=== PATIENT | female | born 1945 | race Caucasian/White ===

== ENCOUNTER 2021-06-12 16:28 | Emergency (ER) | payer MEDICARE, OTHER ==
[~2021-06-12] VITALS: Ht 157.5 cm; Wt 99.8 kg
--- NOTE | 2021-06-12 16:54 | NUR ---
To ER bed 6, [id number], c/o left wrist and r ankle pain s/p tripped and fall, no loc, 12/18. Patient said that she was getting out of her sliding door when she tripped and twisted her ankle, and back of head, [id number], breathing even and nonlabored
--- NOTE | 2021-06-12 17:03 | NUR ---
DR MCDONALD AT BEDSIDE
[2021-06-12] MEDS ORDERED: ACETAMINOPHEN ES 500 MG TABLET ONE (17:26)
[2021-06-12] MEDS: ACETAMINOPHEN ES 500 MG TABLET PO ONE (17:30)
--- NOTE | 2021-06-12 19:00 | NUR ---
DR MCDONALD AT BEDSIDE
--- NOTE | 2021-06-12 19:16 | NUR ---
REPORT GIVEN TO [facility] HERNANDEZ [facility]
--- NOTE | 2021-06-12 19:19 | NUR ---
CALLED [facility] AND SET UP BLS TRANSPORT FOR PT. ETA 2029- 2099
--- NOTE | 2021-06-12 20:19 | NUR ---
[facility] AT BEDSIDE FOR TRANSPORT BACK TO FACILITY. REPORT GIVEN. PT IS IN STABLE CONDITION FOR TRANSPORT
[2021-06-12 20:34] VITALS: BP 156/69
--- NOTE | 2021-06-12 20:34 | NUR ---
pt left on gurcortney with 2 emt at bedside
== END 2021-06-12 20:35 | disposition home or self-care (01) ==
LOC: ER 16:35
DX: S93.124A Dislocation of metatarsophalangeal joint of right lesser toe(s), initial encounter (principal); S60.222A Contusion of left hand, initial encounter; S09.90XA Unspecified injury of head, initial encounter; I10 Essential (primary) hypertension; E78.5 Hyperlipidemia, unspecified; F32.9 Major depressive disorder, single episode, unspecified; F41.9 Anxiety disorder, unspecified; W01.0XXA Fall on same level from slipping, tripping and stumbling without subsequent striking against object, initial encounter; Y93.89 Activity, other specified; Y92.89 Other specified places as the place of occurrence of the external cause; Y99.8 Other external cause status
CPT/HCPCS: 70450-TC; 73130-TC; 73610-TC; 73630-TC